=== PATIENT | male | born 1965 | race Caucasian/White ===

== ENCOUNTER 2016-09-07 10:33 | Emergency (ER) | payer MEDICAID ==
[~2016-09-07] VITALS: Ht 182.9 cm; Wt 79.0 kg
[2016-09-07 10:39] VITALS: BP 150/91
== END 2016-09-07 13:52 | disposition left against medical advice (07) ==
LOC: ED 13:42
DX: R07.9 Chest pain, unspecified (principal); Z53.21 Procedure and treatment not carried out due to patient leaving prior to being seen by health care provider
CPT/HCPCS: 93005